=== PATIENT | male | born 1985 | race Caucasian/White ===

== ENCOUNTER 2017-01-09 11:15 | Emergency (ER) | payer OTHER ==
[~2017-01-09] VITALS: Ht 180.3 cm; Wt 73.5 kg
[2017-01-09 11:28] VITALS: BP 122/81
[2017-01-09] MEDS ORDERED: IPRATROPIUM 0.02% 0.5 MG/2.5 ML NEBU INH ONE (11:30)
[2017-01-09] MEDS ORDERED: ALBUTEROL 0.083% 2.5 MG/3 ML NEBU INH ONE (11:30)
--- NOTE | 2017-01-09 11:39 | NUR ---
PATIENT PRESENTS TO ED WITH SOB EVENT YESTERDAY, TODAY MILD . PT STATES YESTERDAY DURING WORK FELT SOB TODAY NOT SO MUCH---FULL CLEAR SPEECH . DENIES N/V/D; SKIN IS PINK/WARM/DRY; AAOX4 WITH EVEN AND STEADY GAIT; LUNGS CLEAR BL; HR EVEN AND REGULAR; PT DENIES ANY FEVER, CP, SOB, OR COUGH AT THIS TIME; PATIENT STATES PAIN OF 0/10 AT THIS TIME; VSS; PATIENT POSITIONED FOR COMFORT; HOB ELEVATED; BEDRAILS UP X2; BED DOWN. ER MD MADE AWARE OF PT STATUS.
[2017-01-09 12:27] VITALS: BP 114/76
== END 2017-01-09 12:28 | disposition home or self-care (01) ==
LOC: MED 11:15
DX: J45.909 Unspecified asthma, uncomplicated (principal); Z71.6 Tobacco abuse counseling
CPT/HCPCS: 71010; 94640; 99283; J7613; J7644; Q0092